=== PATIENT | female | born 1975 | race Two or more races ===

== ENCOUNTER 2017-01-05 13:41 | Outpatient (CLI) | payer MEDICAID ==
[~2017-01-05] VITALS: Ht 157.5 cm; Wt 60.3 kg
[2017-01-05 13:55] VITALS: BP 99/50; Ht 157.5 cm; Wt 60.3 kg
[2017-01-05] MEDS ORDERED: FERR134T PO (13:58)
[2017-01-05] MEDS ORDERED: PREN1TAB17 PO (13:58)
--- NOTE | 2017-01-05 15:28 | RADRPT ---
PROCEDURE: Limited obstetric ultrasound CLINICAL INDICATION: Pain , spotting TECHNIQUE: Multiple transverse and longitudinal grayscale images of the pelvis were obtained ansari sabdominally and transvaginally.. COMPARISON: same day FINDINGS: The cervix is closed with a length of 4.8 cm. There is a single viable intrauterine gestation. Cardiac activity is present with 140 beats per min [place]. There is a vertex presentation. The placenta is anterior. There is no evidence for an abruption or placenta previa. RPTAT: AA IMPRESSION: Cervix length measures 4.8 cm. .Jefferson Mckeon MD, Date Time Electronically viewed and signed by .Jefferson Mckeon MD, on 01/05/2017 15:27 .S/
--- NOTE | 2017-01-05 15:36 | RADRPT ---
PROCEDURE: US OB. CLINICAL INDICATION: Size and dates TECHNIQUE: Multiple sonographic images of the pelvis and gravid uterus were obtained. The images were reviewed on a PACS workstation. COMPARISON: No prior studies are available for comparison. FINDINGS: The cervix is closed with a length of 4.8 cm. There is a single viable intrauterine gestation. Cardiac activity is present with 140 beats per naveen te. There is a vertex presentation. The placenta is anterior. There is no evidence for an abruption or placenta previa. There is a normal amount of amniotic fluid with a MVP = 5.4 cm. Measurements were made in order to determine age. The results are as follows: BPD =6.3 cm HC =23 cm AC =21.5 cm FL =5.0 cm Estimated gestational age of approximately 25 weeks and 6 days based on ultrasound measurements. Clinical age: 26 weeks and 4 days. The estimated date of delivery is 04/14/17, based on ultrasound measurements. The EFW = 897 g, 22.4%, based on LMP age. RPTAT: AA IMPRESSION: Single viable intrauterine gestation of approximately 25 weeks and 6 days based on ultrasound measu rements. .Jefferson Mckeon MD, Date Time Electronically viewed and signed by .Jefferson Mckeon MD, on 01/05/2017 15:35 .S/
[2017-01-05 16:12] LABS: ADD SCAN DIFF NO
[2017-01-05 16:18] LABS: ADD UMIC NO; URINE BILIRUBIN (Dip) NEGATIVE (NEGATIVE); URINE BLOOD (Dip) NEGATIVE (NEGATIVE); URINE COLOR LT. YELLOW (YELLOW); URINE GLUCOSE (Dip) NEGATIVE (NEGATIVE); URINE KETONES (Dip) NEGATIVE (NEGATIVE); URINE LEUKOCYTE ESTERASE (Dip) NEGATIVE (NEGATIVE); URINE NITRITE (Dip) NEGATIVE (NEGATIVE); URINE TOTAL PROTEIN (Dip) NEGATIVE (NEGATIVE); URINE UROBILINOGEN (Dip) 0.2 E.U./dL (0.1-1.0)
[2017-01-05 16:25] LABS: BASOPHILS % 0.3 % (0.0-2.0); EOSINOPHILS # 0.2 10^3/ul (0.0-0.5); EOSINOPHILS % 1.5 % (0.0-7.0); HEMATOCRIT 36.4 % (37.0-47.0); HEMOGLOBIN 11.9 g/dl (12.0-16.0); LYMPHOCYTES # 1.3 10^3/ul (0.8-2.9); LYMPHOCYTES % 10.6 % (15.0-51.0); MEAN CORPUSCULAR HEMOGLOBIN 30.2 pg (29.0-33.0); MEAN CORPUSCULAR HGB CONC 32.7 g/dl (32.0-37.0); MEAN CORPUSCULAR VOLUME 92.4 fl (82.0-101.0); MEAN PLATELET VOLUME 11.1 fl (7.4-10.4); MONOCYTE # 0.7 10^3/ul (0.3-0.9); MONOCYTES % 5.6 % (0.0-11.0); NEUTROPHIL # 9.7 10^3/ul (1.6-7.5); NEUTROPHILS % 80.3 % (39.0-77.0); PLATELET COUNT 223 10^3/UL (140-415); RED BLOOD COUNT 3.94 10^6/ul (4.20-5.40); RED CELL DISTRIBUTION WIDTH 13.2 % (11.5-14.5)
--- NOTE | 2017-01-05 17:04 | QN ---
Documentation Comment OB Triage: 26+wks GA with postcoital spotting No VB +FM NO LOF No CTXs CXL>4 cm Labs and Ultrasound reviewed --->discharged with precautions --->patient;s Questions answered BLADE FERNANDO M.D. Jan 05, 2017 17:04
--- NOTE | 2017-01-05 17:14 | TRIAGE ---
OB Triage Datetime Report Generated by CPN: 01/05/2017 17:13 Datetime: 01/05/2017 17:00 Comments: GHAYOORI AT BEDSIDE-POC ORDERS TO D/C PATIENT HOME Datetime: 01/05/2017 16:04 Labor Evaluation Frequency: 0 Monitor Mode: External Heart Rate FHR Baseline Rate: 135 Monitor Mode: External US Variability: Moderate 6-25 bpm Accelerations: 15X15 Decelerations: None Category: Category I Pain Presence: None/Denies Pain Type: N/A Datetime: 01/05/2017 15:52 Monitor Mode: External Heart Rate FHR Baseline Rate: 145 Variability: Moderate 6-25 bpm Accelerations: 15X15 Decelerations: None Category: Category I Datetime: 01/05/2017 14:02 Stage of : OB Triage Assessment Type: Triage Maternal Assessment Level of Consciousness: Fully Conscious DTR's/Clonus: DTRs 2+; No Clonus Headache: Denies Blurred Vision: No Respiratory Effort: Unlabored; Regular Rhythm; Equal Expansion Breath Sounds, Left: Clear and Equal Breath Sounds, Right: Clear and Equal Nausea/Vomiting: Denies RUQ Epigastric Pain: Denies Lower Extremities Edema: None Degree: None Facial Edema: None Temperature Route: Oral Fall Risk Assessment History of Falling: (0) No Secondary Diagnosis: (0) No Ambulatory Aid: (0) Bedrest/Nurse Assist IV Therapy: (0) No Gait: (0) Normal/Bedrest/Immobile Mental Status: (0) Oriented to Own Ability Fall Score: 0 Fall Risk Score Definition: No Risk: No action required Labor Evaluation Frequency: 0 Monitor Mode: External Heart Rate FHR Baseline Rate: 145 Monitor Mode: External US Variability: Moderate 6-25 bpm Accelerations: 15X15 Decelerations: None Category: Category I Pain Assessment Pain Scale: 0 Pain Presence: None/Denies Pain Type: N/A Datetime: 01/05/2017 14:01 EGA: 26.5 Datetime: 01/05/2017 14:00 Time of Arrival: 01/05/2017 13:33 Arrived By: Ambulatory Arrived From: Home Chief Complaint: SENT FROM CLINIC FOR US FOR SPOTTING Movement: Present Rupture of Membranes: Denies Vaginal Bleeding: Scant Vaginal Discharge: Denies Recent Sexual Intercouse: Yes Abdominal Trauma: Not Applicable Additional Patient Complaints: PATIENT STATES HAD SPOTTING AFTER INTERCOURSE Time Provider Notified: 01/05/2017 17:01 Provider Notified: DR. FERNANDO Initial Plan: [id number],
== END 2017-01-05 17:10 | disposition home or self-care (01) ==
LOC: OBT 13:41 → L-D 13:42 → OBT 17:10
PROVIDERS: ATTEND Obstetrics & Gynecology
DX: O26.852 Spotting complicating pregnancy, second trimester (principal); O09.522 Supervision of elderly multigravida, second trimester; Z3A.26 26 weeks gestation of pregnancy
CPT/HCPCS: 36415; 76815; 76817; 81003; 85025; 86850; 86900; 86901; Z7500; G0463

== ENCOUNTER 2017-02-27 17:04 | Outpatient (CLI) | payer MEDICAID ==
[~2017-02-27 17:04] MED LIST: FERR134T PO; PREN1TAB17 PO
[2017-02-27 17:45] LABS: URINE BLOOD (Dip) POC Negative (NEGATIVE)
[2017-02-27] MEDS ORDERED: LACTATED RINGER'S 1,000 ML IV ONE (18:00)
--- NOTE | 2017-02-27 18:14 | RADRPT ---
PROCEDURE: US OB biophysical profile. Ultrasound cervix CLINICAL INDICATION: decreased movements, PTL TECHNIQUE: Multiple sonographic images of the pelvis were obtained. In addition, translabial imag es of the cervix were obtained. The images were reviewed on a PACS workstation. COMPARISON: 01/05/2017 FINDINGS: The cervix is closed and measures 3.8 cm in length. There is a single viable intrauterine gestation. Cardiac activity is present with 126 beats per min [place]. There is a vertex presentation. The placenta is anterior. There is no evidence of placental abruption. There is a normal amount of amniotic fluid with an THOM = 8.3 cm. Biophysical profile: movement 2/2 tone 2/2. breathing 2/2 THOM 2/2 Total 05/01 RPTAT: AA . IMPRESSION: Normal biophysical profile. Cervix length measures 3.8 cm. . .Jefferson Mckeon MD, Date Time Electronically viewed and signed by .Jefferson Mckeon MD, on 02/27/2017 18:14 .S/
--- NOTE | 2017-02-27 18:17 | RADRPT ---
PROCEDURE: US OB. CLINICAL INDICATION: Size and dates , labor TECHNIQUE: Multiple sonographic images of the pelvis and gravid uterus were obtained. The images were reviewed on a PACS workstation. COMPARISON: 01/05/2017 FINDINGS: There is a single viable intrauterine gestation. Cardiac activity is present with 142 beats per min [place]. There is a vertex presentation. The placenta is anterior. There is no evidence of placental abruption. There is a normal amount of amniotic fluid with an THOM = 8.3 cm. Measurements were made in order to determine age. The results are as follows: BPD =8.1 cm HC =29.4 cm AC =29.4 cm FL =6.2 cm Estimated gestational age of approximately 32 weeks and 4 days based on ultrasound measurements. Clinical age: 33 weeks and 4 days. The estimated date of delivery is 04/20/2017, based on ultrasound measurements. The EFW = 2053 g, 21%, based on LMP age. RPTAT: AA IMPRESSION: Single viable intrauterine gestation of approximately 32 weeks and 4 days based on ultrasound measu rements. .Jefferson Mckeon MD, MD Date Time Electronically viewed and signed by .Jefferson Mckeon MD, MD on 02/27/2017 18:16 .S/
--- NOTE | 2017-02-27 18:52 | TRIAGE ---
OB Triage Datetime Report Generated by CPN: 02/27/2017 18:52 Datetime: 02/27/2017 18:42 Stage of : OB Triage Datetime: 02/27/2017 18:40 Stage of : OB Triage Maternal Assessment Level of Consciousness: Fully Conscious DTR's/Clonus: DTRs 1+ Headache: Denies Breath Sounds, Left: Clear and Equal Breath Sounds, Right: Clear and Equal Nausea/Vomiting: Denies RUQ Epigastric Pain: Denies Labor Evaluation Frequency: NONE Monitor Mode: External Resting Tone [place]: Relaxed Heart Rate FHR Baseline Rate: 140 Monitor Mode: External US Variability: Moderate 6-25 bpm Accelerations: 15X15 Decelerations: None Category: Category I Pain Assessment Pain Scale: 0 Pain Presence: None/Denies Pain Type: N/A Pain Goal: 3 Vaginal Exam Membrane Status: Intact Datetime: 02/27/2017 17:42 Maternal Assessment Level of Consciousness: Fully Conscious DTR's/Clonus: DTRs 1+ Headache: Denies Blurred Vision: No Respiratory Effort: Unlabored Breath Sounds, Left: Clear and Equal Breath Sounds, Right: Clear and Equal Nausea/Vomiting: Denies RUQ Epigastric Pain: Denies Facial Edema: None Labor Evaluation Frequency: IRRITABILITY Monitor Mode: External Duration (sec)2399: 20-30 Quality: Mild Pattern: Normal: <= 5 Contractions in 10 Minutes Resting Tone [place]: Relaxed Heart Rate FHR Baseline Rate: 140 Monitor Mode: External US Variability: Moderate 6-25 bpm Accelerations: 10X10 Decelerations: None Category: Category I Pain Assessment Pain Scale: 0 Pain Presence: None/Denies Pain Type: N/A Pain Goal: 3 Vaginal Exam Membrane Status: Intact Datetime: 02/27/2017 17:41 Stage of : OB Triage Datetime: 02/27/2017 17:10 Assessment Type: Triage Maternal Assessment Level of Consciousness: Fully Conscious DTR's/Clonus: DTRs 2+; No Clonus Headache: Denies Blurred Vision: No Respiratory Effort: Unlabored; Regular Rhythm; Equal Expansion Breath Sounds, Left: Clear and Equal Breath Sounds, Right: Clear and Equal Nausea/Vomiting: Denies RUQ Epigastric Pain: Denies Lower Extremities Edema: None Degree: None Upper Extremities Edema: None Degree: None Facial Edema: None Fall Risk Assessment History of Falling: (0) No Secondary Diagnosis: (0) No Ambulatory Aid: (0) Bedrest/Nurse Assist IV Therapy: (0) No Gait: (0) Normal/Bedrest/Immobile Mental Status: (0) Oriented to Own Ability Fall Score: 0 Fall Risk Score Definition: No Risk: No action required Datetime: 02/27/2017 17:00 Time of Arrival: 02/27/2017 17:00 EGA: 34.2 Arrived By: Wheelchair Arrived From: Office Chief Complaint: PT CAME IN C/O UC'S ONCE AN HR. DENIES ANY OTHER COMPLAIN AND STATES FEELING BABY MOVEMENT Movement: Present Contractions: Occasional Time Contractions Began: 02/24/2017 08:00 Contractions: Q 1HR Rupture of Membranes: Denies Vaginal Discharge: Denies Recent Sexual Intercouse: Denies Abdominal Trauma: Not Applicable Patient Complaints: None Additional Patient Complaints: NONE Time Provider Notified: 02/27/2017 17:10 Initial Plan: NST AND BPP AND CX LENGHT Datetime: 01/05/2017 14:02 Fall Score: 0 Fall Risk Score Definition: No Risk: No action required Datetime: 01/05/2017 14:01 EGA: 26.5
--- NOTE | 2017-02-27 19:14 | CONS ---
Date/Time of Note Date/Time of Note DATE: 02/27/17 TIME: 19:03 Consultation Date/Type/Reason Admit Date/Time February 27, 2070 OB triage consult Reason for Consultation This patient is a 41 years old 4 para 3 who had one section followed by two in the past Her estimated date of confinement is April 13, 2017 which makes her 34 weeks and 2 days today. she came in this morning due to contractions and to rule out possible labor . On examination her abdomen was soft occasional contractions . Fundus was soft, heart tone was normal with good variability occasional acceleration noted . Her general vital signs appears to be normal with blood pressure of 91/58, pulse rate of 8, respiratory respiration 19 and temperature 98.6, < To evaluate the patient and the fetus further an obstetrical ultrasound was performed.The study report was a single viable intrauterine with heart rate of 140s in vertex presentation THOM was 8.3 cm biophysical profile 8/ 8 . the measurement of the fetus was compatible with 33 weeks and 4 days .The estimated weight was 2052 g which was about 21% percentile The cervical length was 3.8 cm and as I mentioned her biophysical profile was 8 over Laboratory Tests Test 02/27/17 17:48 Bedside Urine pH (LAB) 6.5 Bedside Urine Protein (LAB) Trace Bedside Urine Glucose (UA) Negative Bedside Urine Ketones (LAB) Negative Bedside Urine Blood Negative Bedside Urine Nitrite (LAB) Negative Bedside Urine Leukocyte Esterase (L 1+ Current Medications Medications (Trade) Dose Ordered Sig/Janelle Route PRN Reason Start Time Stop Time Status Last Admin Dose Admin Lactated Ringer's (Lr) 1,000 ml @ 1,000 mls/hr Q1H ONCE IV 02/27/17 18:00 02/27/17 18:52 DC 02/27/17 17:41 1,000 MLS/HR Laboratory Tests Test 02/27/17 17:48 Bedside Urine pH (LAB) 6.5 Bedside Urine Protein (LAB) Trace Bedside Urine Glucose (UA) Negative Bedside Urine Ketones (LAB) Negative Bedside Urine Blood Negative Bedside Urine Nitrite (LAB) Negative Bedside Urine Leukocyte Esterase (L 1+ Current Medications Medications (Trade) Dose Ordered Sig/Janelle Route PRN Reason Start Time Stop Time Status Last Admin Dose Admin Lactated Ringer's (Lr) 1,000 ml @ 1,000 mls/hr Q1H ONCE IV 02/27/17 18:00 02/27/17 18:52 DC 02/27/17 17:41 1,000 MLS/HR Constitutional: No chills, No diaphoresis, No disoriented, No febrile, No improved, No no complaints, No other, No poor po, No requiring IVF, No requiring O2 Eyes: No discharge, No no complaints, No other, No pain, No redness, No visual change ENT: No bleeding, No congestion, No discharge, No dysphagia, No no complaints, No other, No pain, No sore throat Respiratory: No cough, No no complaints, No other, No pain, No pleuritic pain, No shortness of breath, No sputum, No wheezing Cardiovascular: No chest pain, No edema, No lightheadedness, No no complaints, No orthopenea, No other, No palpitations, No paroxysmal nocturnal dyspnea Gastrointestinal: No blood, No constipation, No decreased appetite, No diarrhea , No flatus, No nausea, No no complaints, No other, No pain, No passing stool, No vomiting Genitourinary: other (Pelvic exam was not done), No bleeding, No discharge, No dysuria, No flank pain, No hematuria, No no complaints Musculoskeletal: No back pain, No bone/joint pain, No neck pain, No no complaints, No other, No restricted range of motion, No swelling Skin: No bruising, No erythema, No laceration, No no complaints, No other, No pruritis, No rash, No skin lesions Neurologic: No confusion, No dizziness, No focal-weakness, No headache, No no complaints, No other, No seizure, No syncope Endocrine: No dry skin, No no complaints, No other, No polydypsia, No polyuria , No temp intolerance Additional Comments Due to lack of contraction and normal heart rate patient was reassured of her condition and was discharged home with the recommendation to return to the clinic if again frequent contraction ,pain or vaginal bleeding Exam/Review of Systems Results Results 24 hrs Laboratory Tests Test 02/27/17 17:48 Bedside Urine pH (LAB) 6.5 Bedside Urine Protein (LAB) Trace H Bedside Urine Glucose (UA) Negative Bedside Urine Ketones (LAB) Negative Bedside Urine Blood Negative Bedside Urine Nitrite (LAB) Negative Bedside Urine Leukocyte Esterase (L 1+ H BRO LONDONO MD Feb 27, 2017 19:14
== END 2017-02-27 18:45 | disposition home or self-care (01) ==
LOC: OBT 17:04 → L-D 17:05 → OBT 18:45
PROVIDERS: ATTEND Obstetrics & Gynecology
DX: O62.9 Abnormality of forces of labor, unspecified (principal); O26.843 Uterine size-date discrepancy, third trimester; O60.03 Preterm labor without delivery, third trimester; O36.8130 Decreased fetal movements, third trimester, not applicable or unspecified; O09.523 Supervision of elderly multigravida, third trimester; Z3A.34 34 weeks gestation of pregnancy
CPT/HCPCS: 36415; 76815; 76817; 76818; 81003; 96360; J7120; Z7500; G0463

== ENCOUNTER 2017-03-21 20:14 | Inpatient (IN) | payer MEDICAID ==
[~2017-03-21] VITALS: Ht 157.5 cm; Wt 62.7 kg
[2017-03-21 20:35] VITALS: Ht 157.5 cm; Wt 62.7 kg
[2017-03-21 20:36] VITALS: BP 118/62; PULSE 85; RESP 16
[2017-03-21] MEDS: LACTATED RINGER'S 1,000 ML IV SCH ×2 (21:19→23:51)
[2017-03-21] MEDS ORDERED: FOLI0.4T2 PO (21:38)
[2017-03-21] MEDS ORDERED: LACTATED RINGER'S 1,000 ML IV SCH (23:04)
--- NOTE | 2017-03-22 00:20 | TRIAGE ---
OB Triage Datetime Report Generated by CPN: 03/22/2017 00:20 Datetime: 03/21/2017 23:44 Assessment Type: Admission Assessment Maternal Assessment Level of Consciousness: Fully Conscious DTR's/Clonus: DTRs 2+; No Clonus Headache: Denies Blurred Vision: No Respiratory Effort: Unlabored; Regular Rhythm; Equal Expansion Breath Sounds, Left: Clear and Equal Breath Sounds, Right: Clear and Equal Nausea/Vomiting: Denies RUQ Epigastric Pain: Denies Facial Edema: None Fall Risk Assessment History of Falling: (0) No Secondary Diagnosis: (0) No Ambulatory Aid: (0) Bedrest/Nurse Assist Gait: (0) Normal/Bedrest/Immobile Mental Status: (0) Oriented to Own Ability Datetime: 03/21/2017 23:36 Stage of : OB Triage Datetime: 03/21/2017 23:00 Stage of : OB Triage Labor Evaluation Frequency: 7-8 (Annotations: UTERINE IRRTABILITY NOTED ) Monitor Mode: External Heart Rate FHR Baseline Rate: 135 Monitor Mode: External US Variability: Moderate 6-25 bpm Accelerations: 15X15 Decelerations: None Category: Category I Datetime: 03/21/2017 22:25 Stage of : OB Triage Datetime: 03/21/2017 22:20 Stage of : OB Triage Vaginal Exam Dilatation (cms): 1.0 Effacement (%): 70 Station: -2 Exam By: AMANDA HERNÁNDEZ Datetime: 03/21/2017 22:00 Stage of : OB Triage Labor Evaluation Frequency: 7-8 (Annotations: UTERINE IRRITABILITY NOTED ) Monitor Mode: External Duration (sec)2399: 60-80 Quality: Moderate Resting Tone [place]: Relaxed Heart Rate FHR Baseline Rate: 150 Monitor Mode: External US Variability: Moderate 6-25 bpm Decelerations: None Category: Category II (Annotations: DUE TO LESS ACCEL 15X15) Pain Assessment Pain Scale: 3 Pain Presence: Intermittent Pain Type: Cramping Pain Location: Abdomen Pain Goal: 3 Datetime: 03/21/2017 21:25 Stage of : OB Triage Labor Evaluation Frequency: IRREGULAR A (Annotations: UTERINE IRRITABILITY NOTED ) Monitor Mode: External Duration (sec)2399: 70-80 Quality: Mild Heart Rate FHR Baseline Rate: 155 Monitor Mode: External US Variability: Moderate 6-25 bpm Accelerations: 15X15 Decelerations: None Category: Category I Datetime: 03/21/2017 21:20 Stage of : OB Triage Datetime: 03/21/2017 20:45 Stage of : OB Triage Datetime: 03/21/2017 20:40 Stage of : OB Triage Temperature Route: Oral Labor Evaluation Frequency: 4-5 Monitor Mode: External Duration (sec)2399: 50-60 Quality: Mild Pattern: Normal: <= 5 Contractions in 10 Minutes Resting Tone [place]: Relaxed Heart Rate FHR Baseline Rate: 155 Monitor Mode: External US Variability: Moderate 6-25 bpm Accelerations: 15X15 Decelerations: None Category: Category I Pain Assessment Pain Scale: 7 Pain Presence: Intermittent Pain Type: Contraction Pain Location: Abdomen Pain Goal: 3 Pain Relief Measures: Comfort Measures Datetime: 03/21/2017 20:35 Stage of : OB Triage Vaginal Exam Dilatation (cms): 1.0 Effacement (%): 70 Station: -2 Exam By: AMANDA HERNÁNDEZ Datetime: 03/21/2017 20:30 Time of Arrival: 03/21/2017 20:08 EGA: 37.3 Arrived By: Ambulatory Arrived From: Home Chief Complaint: PT C/O REGULAR ABDOMEN PAIN Movement: Present Contractions: Irregular Time Contractions Began: 03/21/2017 10:00 Contractions: 5-8 Rupture of Membranes: Denies Vaginal Discharge: Denies Recent Sexual Intercouse: Denies Abdominal Trauma: Not Applicable Patient Complaints: Contractions Time Provider Notified: 03/22/2017 20:45 Initial Plan: TOCO AND EFM APPLIED, SVE, NOTIFY PCP Datetime: 02/27/2017 17:10 Fall Score: 0 Fall Risk Score Definition: No Risk: No action required Datetime: 02/27/2017 17:00 EGA: 34.2 Time Provider Notified: 02/27/2017 17:22 Provider Notified: GHAYOORI Datetime: 01/05/2017 14:02 Fall Score: 0 Fall Risk Score Definition: No Risk: No action required Datetime: 01/05/2017 14:01 EGA: 26.5
[2017-03-22 01:31] LABS: ADD SCAN DIFF NO
[2017-03-22 01:33] LABS: BASOPHILS % 0.2 % (0.0-2.0); EOSINOPHILS # 0.2 10^3/ul (0.0-0.5); EOSINOPHILS % 1.7 % (0.0-7.0); HEMATOCRIT 33.4 % (37.0-47.0); LYMPHOCYTES # 1.3 10^3/ul (0.8-2.9); LYMPHOCYTES % 14.6 % (15.0-51.0); MEAN CORPUSCULAR HGB CONC 32.9 g/dl (32.0-37.0); MEAN CORPUSCULAR VOLUME 88.1 fl (82.0-101.0); MEAN PLATELET VOLUME 10.9 fl (7.4-10.4); MONOCYTE # 0.5 10^3/ul (0.3-0.9); MONOCYTES % 5.8 % (0.0-11.0); NEUTROPHIL # 6.7 10^3/ul (1.6-7.5); NEUTROPHILS % 76.2 % (39.0-77.0); PLATELET COUNT 194 10^3/UL (140-415); RED BLOOD COUNT 3.79 10^6/ul (4.20-5.40); RED CELL DISTRIBUTION WIDTH 14.1 % (11.5-14.5); WHITE BLOOD COUNT 8.8 10^3/ul (4.8-10.8)
[2017-03-22 01:50] LABS: INR 0.95; PROTIME 12.7 Sec (12.2-14.2)
[2017-03-22 01:51] LABS: PARTIAL THROMBOPLASTIN TIME 26.4 Sec (25.0-35.0)
[2017-03-22 02:35] LABS: BARBITURATES NEGATIVE (NEGATIVE); BENZODIAZEPINES NEGATIVE (NEGATIVE); CANNABINOIDS NEGATIVE (NEGATIVE); COCAINE NEGATIVE (NEGATIVE); OPIATES NEGATIVE (NEGATIVE)
[2017-03-22] MEDS: LACTATED RINGER'S 1,000 ML IV SCH ×4 (05:26→21:01)
--- NOTE | 2017-03-22 11:28 | RADRPT ---
PROCEDURE: US biophysical profile. CLINICAL INDICATION: Contractions. 36 weeks gestational age. TECHNIQUE: Multiple sonographic images of the uterus were obtained. The images were revi ewed on a PACS workstation. COMPARISON: 02/27/2017. FINDINGS: There is a single live intrauterine gestation. heart rate is 143 beats per minute. The position is cephalic. The placenta is anterior grade II with no abruption or previa. The THOM is 10.9 cm. (Normal = 5-20 cm.) Breathing Movement: 2 Gross Body Movement: 2 Tone: 2 Qualitative Amniotic Fluid Volume: 2 TOTAL: 8 IMPRESSION: 1. The biophysical score is 8/8. RPTAT: QQ .Quinn Terrazas MD, MD Date Time Electronically viewed and signed by .Quinn Terrazas MD, on 03/22/2017 11:28 .R/
[2017-03-22] MEDS: BETAMET NA PHOS/AC(6 MG/ML) 5ML INJ IM SCH (15:49)
[2017-03-22] MEDS ORDERED: CEFAZOLIN 2 GM/50 ML (PMX) 50 ML IVPB ONE (16:30)
[2017-03-22] MEDS ORDERED: METHYLERGONOVINE 0.2 MG INJ IM PRN (16:30)
[2017-03-22] MEDS ORDERED: OXYTOCIN 30 UNITS/LR 500 ML IV PRN (16:30)
[2017-03-22] MEDS ORDERED: CARBOPROST 250 MCG INJ IM PRN (16:30)
[2017-03-22] MEDS ORDERED: MISOPROSTOL 200 MCG TAB PR PRN (16:30)
[2017-03-23] MEDS: LACTATED RINGER'S 1,000 ML IV SCH ×3 (01:34→19:55)
[2017-03-23] MEDS: FOLIC ACID 0.4 MG TAB PO SCH (09:00)
[2017-03-23] MEDS: MULTIVIT/MIN/FOLATE/IRON/PREN TAB PO SCH (09:00)
[2017-03-23] MEDS: FERROUS SULFATE (EC) 325 MG TAB PO SCH (10:00)
--- NOTE | 2017-03-23 13:49 | HP ---
Date/Time of Note Date/Time of Note DATE: 03/23/17 TIME: 13:47 OB - History Hx of Present Free Text/Dictation @37+wks GA with Hx of IUFD@39 wks .Polyhydramnios THOM 27 D/w she will be delivered at 38 wks And she will be monitored in the hospital for any possible cord accidents : 2 Para: 1 Care: Good Care Obstetrical Complications: None Medical Complications: None Past Family/Social History * Past Medical, Surgical, Family and Obstetric Histories reviewed from chart. OB Admission Exam Vital Signs Vital Signs Vital Signs Date Time Temp Pulse Resp B/P Pulse Ox O2 Delivery O2 Flow Rate FiO2 03/21/17 20:36 98.7 85 16 118/62 Room Air Physical Exam HEENT: WNL Abdomen: WNL Cervical Dilatation: None Effacement: 0% Station: Ballot[place] Membranes: Intact Heart Rate: 140's Accelerations: Accelerations Present Decelerations: No Decelerations Varibility: Moderate Last 72 hours Lab Results CBC & BMP 03/22/17 01:21 OB Assessment/Plan Reason for admission: observation Plan: Expectant Management BLADE FERNANDO M.D. Mar 23, 2017 13:49
--- NOTE | 2017-03-23 13:51 | QN ---
Documentation Comment 38+wks +FM No Vb No LOF occasional Ctxs NST reassuring occassional CTXs Pelvic Deferred Close observation BLADE FERNANDO M.D. Mar 23, 2017 13:50
[2017-03-23] MEDS: BETAMET NA PHOS/AC(6 MG/ML) 5ML INJ IM SCH (16:18)
[2017-03-24] MEDS: LACTATED RINGER'S 1,000 ML IV SCH ×2 (03:08→10:43)
[2017-03-24] MEDS: MULTIVIT/MIN/FOLATE/IRON/PREN TAB PO SCH (08:59)
[2017-03-24] MEDS: FERROUS SULFATE (EC) 325 MG TAB PO SCH (08:59)
[2017-03-24] MEDS: FOLIC ACID 0.4 MG TAB PO SCH (08:59)
--- NOTE | 2017-03-24 09:50 | HP ---
Date/Time of Note Date/Time of Note DATE: 03/24/17 TIME: 09:44 OB - History Hx of Present Free Text/Dictation Late Note 03/22/17 @36+wks GA with CTXs Hx of previous C/s and 2 : 4 Para: 1 Care: Good Care Ultrasounds: No ultrasounds Obstetrical Complications: None Medical Complications: None Past Family/Social History * Past Medical, Surgical, Family and Obstetric Histories reviewed from chart. OB Admission Exam Vital Signs Vital Signs Vital Signs Date Time Temp Pulse Resp B/P Pulse Ox O2 Delivery O2 Flow Rate FiO2 03/21/17 20:36 98.7 85 16 118/62 Room Air Physical Exam Abdomen: WNL Extremities: Normal Cervical Dilatation: 1cm Effacement: 75% Station: -1 Membranes: Intact Heart Rate: 140's Accelerations: Accelerations Present Decelerations: No Decelerations Varibility: Moderate Contractions on Admission: 6-10 Minutes Apart Last 72 hours Lab Results CBC & BMP 03/22/17 01:21 OB Assessment/Plan Reason for admission: observation Plan: Expectant Management Other plan: prenatalogy Consult Steroids Case D/w and steroids are recommended Jacek will dictate a Note BLADE FERNANDO M.D. Mar 24, 2017 09:50
--- NOTE | 2017-03-24 10:14 | RADRPT ---
PROCEDURE: OB ultrasound for biophysical profile CLINICAL INDICATION: Contractions TECHNIQUE: Multiple sonographic images of the pelvis were obtained. Transabdominal views of the g ravid uterus are available for review. The images were reviewed on a PACS workstation. COMPARISON: Biophysical profile dated 03/22/2017 FINDINGS: breathing movement = 2/2 tone = 2/2 motion = 2/2 THOM = 2/2 THOM = 6.7 cm Single live intrauterine . position is cephalic. The placenta is anterior. IMPRESSION: 1. Single live intrauterine gestation. 2. Biophysical profile = 8. 3. THOM = 6.7 cm. RPTAT: HH .Maureen Lopez MD, MD Date Time Electronically viewed and signed by .Maureen Lopez MD, on 03/24/2017 10:14 .G/
--- NOTE | 2017-03-24 16:53 | RADRPT ---
PROCEDURE: Limited OB ultrasound CLINICAL INDICATION: THOM TECHNIQUE: Sonographic evaluation to assess the THOM was performed. Transabdominal imaging of the gravid uterus was performed. COMPARISON: OB ultrasound dated 03/22/2017 FINDINGS: There is a single live intrauterine with a heart rate of 152 bpm. position is cephalic. The placenta is anterior. The THOM measures 10.5 cm. IMPRESSION: The THOM measures 10.5 cm. RPTAT: HH .Maureen Lopez MD, MD Date Time Electronically viewed and signed by .Maureen Lopez MD, MD on 03/24/2017 16:52 .G/
== END 2017-03-24 17:35 | disposition home or self-care (01) | DRG 778 ==
LOC: OBT 20:14 → L-D 20:16 → OBT 22:59 → OBG 03-23 01:37
PROVIDERS: ADMIT Obstetrics & Gynecology; ATTEND Obstetrics & Gynecology
DX: O60.00 Preterm labor without delivery, unspecified trimester (principal); Z3A.36 36 weeks gestation of pregnancy
CPT/HCPCS: 59025; 76816; 76818; 80307; 85025; 85610; 85730; 86592; 86900; 86901; 96360; G0463; J0702; J7120

== ENCOUNTER 2017-03-26 05:53 | Inpatient (IN) | payer MEDICAID ==
[~2017-03-26] VITALS: Ht 157.5 cm; Wt 63.5 kg
[2017-03-26 06:21] VITALS: Ht 157.5 cm; Wt 63.5 kg
[2017-03-26 06:22] VITALS: BP 104/57; PULSE 65; RESP 18
[2017-03-26] MEDS ORDERED: PREN-93 PO (06:28)
[2017-03-26] MEDS ORDERED: LACTATED RINGER'S 1,000 ML IV SCH (06:30)
--- NOTE | 2017-03-26 07:53 | HP ---
Date/Time of Note Date/Time of Note DATE: 03/26/17 TIME: 07:49 OB - History Hx of Present Free Text/Dictation 41 YO with IUP at 36.3 days reports to L&D with vaginal bleeding. she also repors she has UCs Q 5 min. she denies LOF per vagina except for VB. she reports good FM. she has h/o c/s x 1 about 18 yrs ago followed by 2 VBACs Care: Good Care Ultrasounds: Normal mid trimester US Obstetrical Complications: Other (she had VB last week) Medical Complications: None Other Concerns: h/o c/s and h/o x 2 Past Family/Social History * Past Medical, Surgical, Family and Obstetric Histories reviewed from chart. h/o c/s OB Admission Exam Vital Signs Vital Signs Vital Signs Date Time Temp Pulse Resp B/P Pulse Ox O2 Delivery O2 Flow Rate FiO2 03/26/17 06:22 98.3 65 18 104/57 Room Air Physical Exam HEENT: WNL Heart: Rhythm Normal Lungs: Clear, Equal Abdomen: WNL Extremities: Normal Reflexes: Normal OB Assessment/Plan Other Assessment: 41 YO with IUP at 36.3 days reports to L&D with vaginal bleeding. she also repors she has UCs Q 5 min. Other plan: sono then check cervix MIRTHA IBRAHIM MD Mar 26, 2017 07:53
--- NOTE | 2017-03-26 08:05 | RADRPT ---
PROCEDURE: OB ultrasound for biophysical profile CLINICAL INDICATION: Vaginal bleeding TECHNIQUE: Multiple sonographic images of the pelvis were obtained. Transabdominal views of the g ravid uterus are available for review. The images were reviewed on a PACS workstation. COMPARISON: None FINDINGS: breathing movement = 2/2 tone = 2/2 motion = 2/2 THOM = 2/2 THOM = 12.0 cm Single live intrauterine with cardiac activity of 150 bpm. position is cephal ic. The placenta is posterior. IMPRESSION: 1. Single live intrauterine gestation. 2. Biophysical profile = 8/8. 3. THOM = 12.0 cm. RPTAT: HH .Maureen Lopez MD, MD Date Time Electronically viewed and signed by .Maureen Lopez MD, on 03/26/2017 08:05 .G/
[2017-03-26] MEDS ORDERED: BETAMET NA PHOS/AC(6 MG/ML) 5ML INJ IM SCH (11:30)
[2017-03-26 11:36] LABS: ADD SCAN DIFF NO
[2017-03-26 11:39] LABS: BASOPHILS % 0.3 % (0.0-2.0); EOSINOPHILS # 0.1 10^3/ul (0.0-0.5); EOSINOPHILS % 0.8 % (0.0-7.0); HEMATOCRIT 31.3 % (37.0-47.0); HEMOGLOBIN 10.6 g/dl (12.0-16.0); LYMPHOCYTES % 13.3 % (15.0-51.0); MEAN CORPUSCULAR HEMOGLOBIN 29.7 pg (29.0-33.0); MEAN CORPUSCULAR HGB CONC 33.9 g/dl (32.0-37.0); MEAN CORPUSCULAR VOLUME 87.7 fl (82.0-101.0); MEAN PLATELET VOLUME 11.9 fl (7.4-10.4); MONOCYTE # 0.6 10^3/ul (0.3-0.9); MONOCYTES % 7.2 % (0.0-11.0); NEUTROPHIL # 5.9 10^3/ul (1.6-7.5); NEUTROPHILS % 75.9 % (39.0-77.0); PLATELET COUNT 193 10^3/UL (140-415); RED BLOOD COUNT 3.57 10^6/ul (4.20-5.40); RED CELL DISTRIBUTION WIDTH 13.9 % (11.5-14.5); WHITE BLOOD COUNT 7.7 10^3/ul (4.8-10.8)
[2017-03-26] MEDS: LACTATED RINGER'S 1,000 ML IV SCH ×3 (11:51→20:46)
[2017-03-26 17:03] LABS: INR 0.93; PROTIME 12.5 Sec (12.2-14.2)
[2017-03-26 17:04] LABS: PARTIAL THROMBOPLASTIN TIME 24.9 Sec (25.0-35.0)
[2017-03-26] MEDS ORDERED: CARBOPROST 250 MCG INJ IM PRN (19:00)
[2017-03-26] MEDS ORDERED: MISOPROSTOL 200 MCG TAB PR PRN (19:00)
[2017-03-26] MEDS ORDERED: CEFAZOLIN 2 GM/50 ML (PMX) 50 ML IV SCH (19:00)
[2017-03-26] MEDS ORDERED: OXYTOCIN 30 UNITS/LR 500 ML IV SCH (19:00)
[2017-03-26] MEDS ORDERED: OXYTOCIN 30 UNITS/LR 500 ML IV PRN (19:00)
[2017-03-26] MEDS ORDERED: METHYLERGONOVINE 0.2 MG INJ IM PRN (19:00)
[2017-03-26] MEDS ORDERED: EPHEDrine SULFATE 50 MG/5 ML SYG ONE (21:14)
[2017-03-26] MEDS ORDERED: METOCLOPRAMIDE 10 MG INJ ONE (21:14)
[2017-03-26] MEDS ORDERED: OXYTOCIN 10 UNIT INJ ONE (21:14)
[2017-03-26] MEDS ORDERED: OXYTOCIN 30 UNITS/LR 500 ML IV ONE (21:14)
[2017-03-26] MEDS ORDERED: ONDANSETRON 4 MG INJ ONE (21:14)
[2017-03-26] MEDS ORDERED: morphine SULFATE/PF (10 MG/10 ML) INJ ONE (21:15)
--- NOTE | 2017-03-26 22:20 | OPR ---
Operative Report Planned Procedure Free Text/Dictation @36+wks with bloody show.patient progressed to 3cm case D/w ,perinatalogist and delivery is recommended vs Repeat c/s discussed extensively band she desires to have a c/s Procedure date Mar 26, 2017 Procedure(s) Repeat c/s Performed by: BLADE FERNANDO M.D. Assisting provider: GUERO RODAS MD Anesthesiologist: MARVIN FERRELL MD Pre-procedure diagnosis previous c/s labor Anesthesia Type: spinal Procedure Description Under satisfactory [] anesthesia, the patient was prepped and draped and placed in a supine position, tilted to the left. Pfannenstiel incision was made, carried through the subcutaneous tissue. Bleeders brought under control with electrocautery. Fascia incised to the length of the incision. Rectus muscles from the fascia, divided midline. Peritoneum exposed, entered through a transverse incision. Exploration of abdomen revealed gravid uterus. Bladder flap was developed. Transverse incision was made in the lower segment of the uterus. Amniotic sac ruptured. [] amniotic fluid noted. [] Nasal oropharyngeal suction was performed. The baby was handed to the team for immediate attention. The placenta was delivered manually intact. Uterine cavity was cleaned with wet sponge and drainage established. Uterus closed in 2 layers using [] in continuous fashion. Peritoneal cavity irrigated with warm saline. Sponge, needle and instrument count reported to be correct. Abdominal peritoneum closed with [] continuously. Rectus muscle approximated with []. Fascia closed with [], and skin closed with dermoband. Estimated blood loss [600 ]mL. Urine bag contained []mL of urine Post-Procedure Findings: Live Baby [], Apgars [] and [], weight [], position [], [] presentation []cord. Specimen removed: Yes Complications: None Pt Condition post procedure: stable Disposition: PACU Physician Certification I, the undersigned physician, hereby certify that I have discussed the procedure described in this consent form with this patient (or the patient's legal patient services representative), including: * The risk and benefits of the procedure; * Any adverse reactions that may reasonably be expected to occur; * Any alternative efficacious methods of treatment which may be medically viable ; * The potential problems that may occur during recuperation; * Potential for blood transfusion and associated risks/benefits; and * Any research or economic interest I may have regarding this treatment. I further certify that the patient/legally responsible person was encouraged to ask question and that all questions were answered. BLADE FERNANDO M.D. Mar 26, 2017 22:18
[2017-03-26] MEDS ORDERED: morphine 2 MG INJ IV PRN ×2 (23:00)
[2017-03-26] MEDS ORDERED: NALOXONE (0.4 MG/ML) INJ IV PRN (23:00)
[2017-03-26] MEDS ORDERED: DIPHENHYDRAMINE 50 MG INJ IV PRN (23:00)
[2017-03-26] MEDS ORDERED: morphine 4 MG/ML VIAL IV PRN (23:00)
[2017-03-26] MEDS ORDERED: HYDROmorphONE 1 MG/ML SYG IV PRN ×2 (23:00)
[2017-03-26] MEDS ORDERED: EPHEDrine SULFATE 50 MG/5 ML SYG IV PRN (23:00)
[2017-03-26] MEDS ORDERED: morphine SULFATE/PF (10 MG/10 ML) INJ SPINAL ONE (23:00)
[2017-03-26] MEDS ORDERED: ONDANSETRON 4 MG INJ IV PRN (23:00)
[2017-03-26] MEDS: KETOROLAC 30 MG INJ IV PRN (23:07)
[2017-03-27] VITALS (9 sets, daily range): BP systolic 91–107; BP diastolic 50–55; PULSE 62–80; RESP 16–19
[2017-03-27] MEDS ORDERED: BENZOCAINE 20% 56 ML SPRAY TOP PRN (01:00)
[2017-03-27] MEDS ORDERED: MISOPROSTOL 200 MCG TAB PR PRN (01:00)
[2017-03-27] MEDS ORDERED: CARBOPROST 250 MCG INJ IM PRN (01:00)
[2017-03-27] MEDS ORDERED: OXYTOCIN 30 UNITS/LR 500 ML IV PRN (01:00)
[2017-03-27] MEDS ORDERED: LANOLIN 7 GM TUBE TOP PRN (01:00)
[2017-03-27] MEDS ORDERED: WITCH HAZEL/GLYCERIN PAD PR PRN (01:00)
[2017-03-27] MEDS ORDERED: ZOLPIDEM 5 MG TAB PO PRN (01:00)
[2017-03-27] MEDS ORDERED: METHYLERGONOVINE 0.2 MG INJ IM PRN (01:00)
[2017-03-27] MEDS ORDERED: SENNA/DOCUSATE NA (8.6MG/50MG) TAB PO PRN (01:00)
[2017-03-27] MEDS ORDERED: OXYCODONE/ASPIRIN (4.88/325) TAB PO PRN (01:00)
[2017-03-27] MEDS: KETOROLAC 30 MG INJ IV PRN ×3 (05:31→17:49)
[2017-03-27] MEDS: LACTATED RINGER'S 1,000 ML IV* SCH ×3 (05:32→19:00)
[2017-03-27] MEDS: IBUPROFEN 600 MG TAB PO SCH ×3 (06:00→18:00)
[2017-03-27 06:56] LABS: ADD SCAN DIFF NO
[2017-03-27 07:04] LABS: BASOPHILS % 0.2 % (0.0-2.0); EOSINOPHILS % 0.2 % (0.0-7.0); HEMATOCRIT 29.7 % (37.0-47.0); HEMOGLOBIN 9.8 g/dl (12.0-16.0); LYMPHOCYTES % 7.3 % (15.0-51.0); MEAN CORPUSCULAR HEMOGLOBIN 28.9 pg (29.0-33.0); MEAN CORPUSCULAR VOLUME 87.6 fl (82.0-101.0); MEAN PLATELET VOLUME 11.3 fl (7.4-10.4); MONOCYTE # 0.6 10^3/ul (0.3-0.9); MONOCYTES % 4.5 % (0.0-11.0); NEUTROPHIL # 12.2 10^3/ul (1.6-7.5); NEUTROPHILS % 86.9 % (39.0-77.0); PLATELET COUNT 175 10^3/UL (140-415); RED BLOOD COUNT 3.39 10^6/ul (4.20-5.40); RED CELL DISTRIBUTION WIDTH 13.7 % (11.5-14.5); WHITE BLOOD COUNT 14.1 10^3/ul (4.8-10.8)
[2017-03-27] MEDS: SENNA/DOCUSATE NA (8.6MG/50MG) TAB PO SCH ×2 (09:00→20:48)
[2017-03-27] MEDS: OXYCODONE/ASPIRIN (4.88/325) TAB PO PRN (21:39)
[2017-03-28] MEDS: IBUPROFEN 600 MG TAB PO SCH ×4 (00:21→17:49)
--- NOTE | 2017-03-28 00:43 | QN ---
Documentation Comment Quick Note : Late Entry Note 03/27/17 POD#1 is stable afebrile tolerated Diet No VB +Flatus+Voids VS stable Gen NAD Abd soft NT ND Dressing to be removed --->DIscharge plan tomorrow --->ambulation BLADE FERNANDO M.D. Mar 28, 2017 00:43
[2017-03-28] MEDS: LACTATED RINGER'S 1,000 ML IV* SCH ×2 (00:55→12:49)
[2017-03-28] MEDS: OXYCODONE/ASPIRIN (4.88/325) TAB PO PRN ×3 (02:35→14:39)
[2017-03-28 05:38] VITALS: BP 98/56; PULSE 63; RESP 19
[2017-03-28 08:16] VITALS: BP 84/50; PULSE 77; RESP 18
[2017-03-28] MEDS: SENNA/DOCUSATE NA (8.6MG/50MG) TAB PO SCH ×2 (08:16→21:15)
[2017-03-28] MEDS ORDERED: DIPHTH/TET/ACEL PERTUSS (ADULT) 0.5 ML VIAL IM* ONE (09:00)
[2017-03-28] MEDS ORDERED: NA PHOSPHATE/BIPHOS 133 ML ENEMA PR ONE (13:30)
[2017-03-28] MEDS ORDERED: OXYCODONE/ACETAMINOPHEN (5/325) TAB PO PRN ×2 (16:00→21:30)
[2017-03-28 16:30] VITALS: BP 102/52; PULSE 70; RESP 16
[2017-03-28] MEDS ORDERED: IBUPROFEN 600 MG TAB PO SCH (18:00)
[2017-03-28 20:00] VITALS: BP 100/55; PULSE 77; RESP 18
[2017-03-29 04:00] VITALS: BP 101/60; PULSE 68; RESP 18
[2017-03-29] MEDS: IBUPROFEN 600 MG TAB PO SCH ×3 (06:16→11:51)
[2017-03-29 07:45] VITALS: BP 94/56; PULSE 63; RESP 40
[2017-03-29] MEDS: OXYCODONE/ASPIRIN (4.88/325) TAB PO PRN (09:43)
[2017-03-29] MEDS: SENNA/DOCUSATE NA (8.6MG/50MG) TAB PO SCH (10:06)
[2017-03-29 10:45] LABS: RUBELLA ANTIBODY - IGG 8.26 index
== END 2017-03-29 15:20 | disposition home or self-care (01) | DRG 766 ==
LOC: OBT 05:53 → L-D 05:55 → OBT 11:00 → OBG 11:00 → L-D 19:17 → PP1 03-27 00:25
PROVIDERS: ADMIT Obstetrics & Gynecology; ATTEND Obstetrics & Gynecology
PROC: 10D00Z1 Extraction of Products of Conception, Low, Open Approach (ICD-10-PCS; principal; 2017-03-26 21:00)
DX: O60.14X0 Preterm labor third trimester with preterm delivery third trimester, not applicable or unspecified (principal); O34.211 Maternal care for low transverse scar from previous cesarean delivery; Z3A.36 36 weeks gestation of pregnancy; Z37.0 Single live birth
CPT/HCPCS: 36415; 76818; 85025; 85610; 85730; 86592; 86762; 86850; 86900; 86901; 90715; 94760; 96360; 96361; 99464; G0463; J0690; J0702; J1200; J1885; J2274; J2405; J2590; J2765; J7120